=== PATIENT | female | born 1985 | race African-American/Black ===

== ENCOUNTER 2020-04-15 18:37 | Emergency (ER) | payer OTHER, SELFPAY ==
[2020-04-15 18:49] VITALS: BP 132/87; PULSE 92; RESP 18; TEMP 36.8; O2SAT 98
--- NOTE | 2020-04-15 19:24 | ED.ABDPAIN ---
HPI - Abdominal Pain General Chief Complaint: Abdominal Pain Stated Complaint: abd pain/lower back pain Time Seen by Provider: 04/15/20 19:08 Source: patient and RN notes reviewed Mode of arrival: ambulatory Limitations: no limitations History of Present Illness HPI narrative: Patient presents today complaining of lower abdominal pain and pressure x2 to 3 days with bilateral and midline low back pain that is sharp in nature. She currently rates her pain 7/10 and has tried no [id number] interventions prior to arrival. Denies dysuria, hematuria, frequency, nausea, vomiting, diarrhea, fever, vaginal discharge or odor. She is requesting STD testing. Denies any known STD exposure. MD elicited complaint: abdominal pain Related Data Allergies Allergy/AdvReac Type Severity Reaction Status Date / Time No Known Allergies Allergy Verified 12/19/18 17:04 Review of Systems Review of Systems: Narrative: CONSTITUTIONAL: Denies body aches, fever, chills, or sweats. EYES: Denies visual changes, redness, or discharge. ENT: Denies rhinorrhea, congestion, sore throat, or otalgia. CARDIOVASCULAR: Denies chest pain, palpitations, or edema. RESPIRATORY: Denies cough or dyspnea. GASTROINTESTINAL: Denies nausea, vomiting, or diarrhea. + Lower abdominal pain GENITOURINARY: Denies dysuria or hematuria. SKIN: Denies rash, itching, or wounds. MUSCULOSKELETAL: Denies joint pain, or myalgia. + Low back pain NEUROLOGIC: Denies headache, numbness, tingling, or weakness. PSYCH: Denies depression or anxiety. PMFSH Comments At time of signature, I have reviewed and agree with nursing past medical, surgical, social and family history unless otherwise noted. Please see nursing chart for further information. There is no relevant family history pertinent to the presenting complaint Exam Narrative: Exam Narrative: GENERAL: Well-appearing, well-nourished, and in no acute distress. HEAD: Normocephalic, atraumatic. EYES: EOMI. No redness or drainage. Conjunctivae normal. ENT: Mucous membranes pink and moist. NECK: Normal AROM. Supple. No lymphadenopathy. CHEST: No respiratory distress. Clear to auscultation. HEART: Regular rate and rhythm. No murmur appreciated. Normal peripheral pulses. ABDOMEN: Soft, nondistended, normal active bowel sounds. No rebound or guarding. -CVAT. + Mild suprapubic tenderness. exam deferred. MUSCULOSKELETAL: No bony tenderness. EXTREMITIES: Normal range of motion. No edema. SKIN: Warm, dry, no rash. Capillary refill normal. Normal skin turgor. NEURO: No focal deficits. Alert and oriented x3. Gait steady. PSYCH: Normal affect. No signs of depression or anxiety. Course Course Emergency Course: Discussed limitations of STD testing here. 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 Vital Signs Vital signs: Vital Signs Temperature 98.3 F 04/15/20 18:49 Pulse Rate 92 04/15/20 18:49 Respiratory Rate 18 04/15/20 18:49 Blood Pressure 132/87 04/15/20 18:49 Pulse Oximetry 98 04/15/20 18:49 Temperature 98.3 F 04/15/20 18:49 Pulse Rate 92 04/15/20 18:49 Respiratory Rate 18 04/15/20 18:49 Blood Pressure 132/87 04/15/20 18:49 Pulse Oximetry 98 04/15/20 18:49 Reviewed. Pt has been instructed to follow up with her PCP regarding her elevated blood pressure today. MDM - Abdominal Pain Differential Diagnosis Differential diagnosis: Likely abdominal pain, acute appendicitis, calculus of kidney and other (UTI, pyelonephritis, gonorrhea, chlamydia, trichomonas) Lab Data Attestation: I reviewed the patient's lab results. Labs: Lab Results 04/15/20 Range/Units 19:23 C.trachomatis RNA (TMA) Pending N.gonorrhoeae RNA (TMA) Pending T. vaginalis Amp RNA Pending Urine Glucose Negative Reference Range: Negative Urine Bilirubin 1+ Ref
[2020-04-15] MEDS: LIDOCAINE HCL 1% LOCAL INJ 20 ML VIAL IM (19:30)
[2020-04-15] MEDS: AZITHROMYCIN 250 MG TABLET 1000 MG PO (19:30)
[2020-04-15] MEDS: cefTRIAXone 250 MG VIAL IM (19:30)
== END 2020-04-15 19:54 | disposition home or self-care (01) ==
PROVIDERS: Emergency Provider Nurse Practitioner
DX: R10.30 Lower abdominal pain, unspecified (principal); Z20.2 Contact with and (suspected) exposure to infections with a predominantly sexual mode of transmission
CPT/HCPCS: 81003; 87086; 87088; 87491; 87591; 87661; 96372; 99214; A9270; G0463; J0696

== ENCOUNTER 2020-05-18 23:01 | Emergency (ER) | payer OTHER, SELFPAY ==
[2020-05-18 23:11] VITALS: BP 145/92; PULSE 78; RESP 16; TEMP 36.4; O2SAT 100
[2020-05-19 00:10] VITALS: BP 123/80; PULSE 71; RESP 18; O2SAT 99
--- NOTE | 2020-05-19 00:17 | ED.SKABFB ---
HPI - Skin/Abscess/Foreign Bdy General Chief complaint: Skin/Abscess/Foreign Body Stated complaint: boil Time Seen by Provider: 05/18/20 23:57 History of Present Illness HPI narrative: Painful swelling to the right side of her vagina for the past couple of days. She believes that she has an abscess. She has had them in other locations, but never on the vagina. No medical problems. Denies any other symptoms. Related Data Allergies Allergy/AdvReac Type Severity Reaction Status Date / Time No Known Allergies Allergy Verified 05/19/20 00:25 Review of Systems Review of Systems: All systems reviewed & are unremarkable except as noted in HPI and below Constitutional: Constitutional: Denies chills and Denies fever(s) Cardiovascular: Cardiovascular: Denies chest pain Respiratory: Respiratory: Denies dyspnea Gastrointestinal: Gastrointestinal: Denies abdominal pain and Denies nausea Genitourinary: Genitourinary: Denies hematuria, Denies nocturia, Denies dysuria and Denies vaginal discharge Neurologic: Denies numbness and Denies weakness [facility] Social History Social History Gender identity (if verbalized by the patient): Female Exam Const: General: no acute distress and alert Nutritional Appearance: obese Orientation/consciousness: patient oriented x3 HENMT: Head: normal to inspection Resp: Effort & Inspection: normal respiratory effort Auscultation: clear to auscultation bilaterally Cardio: Rate: regular rate Rhythm: regular rhythm GI: GI Palp: Yes Soft to palpation and No Tenderness to palpation present (GI) : Other: Small right labial abscess Neuro: General: patient oriented x3 and moves all extremities Extrem: General: normal to inspection Course Vital Signs Vital signs: Vital Signs Temperature 36.4 C 05/18/20 23:11 Pulse Rate 78 05/18/20 23:11 Respiratory Rate 16 05/18/20 23:11 Blood Pressure 145/92 H 05/18/20 23:11 Pulse Oximetry 100 05/18/20 23:11 Temperature 36.4 C 05/18/20 23:11 Pulse Rate 71 05/19/20 00:10 Respiratory Rate 18 05/19/20 00:10 Blood Pressure 123/80 05/19/20 00:10 Pulse Oximetry 99 05/19/20 00:10 Procedures Abscess I/D other: Side (if applicable): right (labia majora) Local Anesthetic: lidocaine 1% and with epi Amount of anesthesia used (mL): 2 Technique: incised with #11 blade Amount of fluid expressed (mL): 2 Irrigation: Yes Packing used?: none I&D Results: Pus MDM - Skin/Abscess/Foreign Bdy Differential Diagnosis Differential diagnosis: Likely abscess of skin or subcutaneous tissue and cellulitis Medical Records Attestation: I reviewed the patient's medical records. Discharge Plan Discharge Clinical Impression: Abscess of labia majora Patient Disposition: Home, Self-Care Condition: Stable Instructions: Antibiotic Form, Abscess (ED) Prescriptions: New clindamycin HCl 300 mg capsule 300 mg PO BID 7 Days Qty: 14 RF: 0 Follow-up/Referrals: Harpreet Gipson MD [Physician] - PHYSICIAN,DIE CAST OPERATOR [Primary Care Provider] -
--- NOTE | 2020-05-19 00:35 | PC.NURSE ---
Dr. Moffett at bedside for I & D right labial abscess. Pt tolerated procedure well.
[2020-05-19] MEDS: CLINDAMYCIN HCL 150 MG CAP 300 MG PO (00:50)
== END 2020-05-19 00:54 | disposition home or self-care (01) ==
PROVIDERS: Emergency Provider Emergency Medicine
DX: N76.4 Abscess of vulva (principal)
CPT/HCPCS: 56405; 99283; A9270

== ENCOUNTER 2020-05-21 09:42 | Emergency (ER) | payer OTHER, SELFPAY ==
--- NOTE | ~2020-05-21 | US_ITS ---
EXAMINATION: US pelvic complete w TV DATE: 05/21/2020 12:18 INDICATION: Pelvic pain Comparison:07/05/2010 TECHNIQUE: Multiple transabdominal and endovaginal sonographic images of the pelvis performed. FINDINGS: The uterus measures 9.6 x 5.3 x 7.3 cm. The endometrial complex measures 11 mm. The right ovary measures 2.8 x 2.1 x 1.8 cm and the left ovary measures 2.7 x 1 x 0.9 cm. There are small follicles in each ovary. There is no free fluid in the pelvis. There are no abnormal masses seen on either side. IMPRESSION: 1. Normal pelvic ultrasound. Reviewed, dictated and finalized at location A. WARE APPLICATIONS ARCHITECT
[2020-05-21 09:49] VITALS: BP 161/76; PULSE 90; RESP 18; TEMP 35.9; O2SAT 99
--- NOTE | 2020-05-21 10:22 | ED.FEMALEGU ---
HPI - Female Genitourinary General Chief complaint: CPO Stated complaint: pain to buttocks and vagina Time Seen by Provider: 05/21/20 10:03 Source: patient Mode of arrival: ambulatory Limitations: no limitations History of Present Illness HPI Narrative: This is a 34-year-old female that presents the emergency department for vaginal pain x4 days. Reports pain is worse with intercourse. It is sharp in nature. Reports she was recently seen here for a abscess on her labia that was lanced. She has picked up her antibiotics, but has not started them yet. Also reports pelvic pain that is dull in nature. Denies fever, nausea, vomiting, dysuria, rashes, abnormal discharge, or hematuria. Related Data Home Medications Medication Instructions Recorded Confirmed No Home Medications 05/21/20 05/21/20 Allergies Allergy/AdvReac Type Severity Reaction Status Date / Time No Known Allergies Allergy Verified 05/21/20 09:53 Review of Systems Review of Systems: Narrative: CONSTITUTIONAL: Denies fever GASTROINTESTINAL: Denies abdominal pain, nausea, vomiting GENITOURINARY: Denies dysuria or hematuria. SKIN: Denies rash All systems reviewed & are unremarkable except as noted in HPI and below PMFSH Past Medical History Medical History (Updated 05/21/20 @ 13:49 by Nabila Leblanc PA-C) No active medical problems Surgical History Surgical History (Updated 05/21/20 @ 11:33 by Nabila Leblanc PA-C) History of cholecystectomy History of tubal ligation Social History Social History Gender identity (if verbalized by the patient): Female Exam Narrative: Exam Narrative: GENERAL: Well-appearing, obese, and in no acute distress. HEAD: Normocephalic, atraumatic. EYES: EOMI. CHEST: Clear to auscultation. No respiratory distress. No wheezes rales or rhonchi HEART: Regular rate and rhythm. No murmur heard. Normal peripheral pulses. ABDOMEN: Soft, nontender, nondistended, normal active bowel sounds. EXTREMITIES: Normal range of motion. No edema. SKIN: Warm, dry, no rash. NEURO: No focal deficits. Alert and oriented x3. PSYCH: Normal mood and affect PELVIC: Normal external genitalia. Normal appearing cervix. No CMT. Small amount of white cervical discharge in the vaginal vault Course Vital Signs Vital signs: Vital Signs Temperature 96.7 F L 05/21/20 09:49 Pulse Rate 90 05/21/20 09:49 Respiratory Rate 18 05/21/20 09:49 Blood Pressure 161/76 H 05/21/20 09:49 Pulse Oximetry 99 05/21/20 09:49 Temperature 96.7 F L 05/21/20 09:49 Pulse Rate 90 05/21/20 09:49 Respiratory Rate 18 05/21/20 09:49 Blood Pressure 161/76 H 05/21/20 09:49 Pulse Oximetry 99 05/21/20 09:49 MDM - Female Genitourinary MDM Narrative Medical decision making narrative: Patient presents to the emergency department for vaginal/pelvic pain. She is afebrile and nontoxic-appearing. No abnormalities noted on external genitalia exam or pelvic exam. CBC and metabolic panel without concerning findings. UA without concern for infection. Bedside test is negative. Ultrasound of the pelvis is without acute findings. Trichomonas was negative. Chlamydia and gonorrhea were sent. Patient would like to follow-up with results and would not like to be treated presumptively at this time. Patient will be given gynecology for follow-up. She is stable and felt appropriate for the outpatient evaluation. She was given warnings to return to the ER Lab Data Attestation: I reviewed the patient's lab results. Result diagrams: 05/21/20 10:55 05/21/20 10:55 Labs: Lab Results 05/21/20 05/21/20 05/21/20 Range/Units 10:35 10:35 10:55 WBC 6.3 (4.5-10.0) K/mm3 RBC 4.58 (4.2-5.4) M/mm3 Hgb 14.6 (12.0-15.0) g/dL Hct 42.0 (37.0-47.0) % MCV 91.7 (80-100) fl MCH 31.9 (26-34) pg MCHC 34.8 (32-36) g/dl RDW 13.3 (11.5-
[2020-05-21 11:04] LABS: Basophils Percent Auto 0.5 % (0.2-1.2); Eosinophils Absolute Auto 0.1 K/mm3 (0-0.3); Eosinophils Percent Auto 2.2 % (0-4.4); Hemoglobin 14.6 g/dL (12.0-15.0); Immature Granulocyte Absolute 0.02 K/mm3 (0.00-0.031); Immature Granulocyte Percent A 0.3 % (0-0.5); Lymphocytes Absolute Auto 2.22 K/mm3 (0.9-3.2); Lymphocytes Percent Auto 35.5 % (18.3-44.2); Mean Corpuscular HGB Conc 34.8 g/dl (32-36); Mean Corpuscular Hemoglobin 31.9 pg (26-34); Mean Corpuscular Volume 91.7 fl (80-100); Mean Platelet Volume 9.6 fl (7.4-10.4); Monocytes Absolute Auto 0.5 K/mm3 (0.1-0.6); Monocytes Percent Auto 7.5 % (2.6-8.5); Neutrophils Absolute Auto 3.4 K/mm3 (1.3-6.7); Platelet Count Result 280 k/mm3 (150-375); Red Blood Count 4.58 M/mm3 (4.2-5.4); Red Cell Distribution Width 13.3 % (11.5-14.5); White Blood Count 6.3 K/mm3 (4.5-10.0)
[2020-05-21 11:26] LABS: Anion Gap 3 mmol/L (8-16); Blood Urea Nitrogen 9 mg/dL (7-17); Calcium 9.3 mg/dL (8.4-10.2); Carbon Dioxide 29 mmol/L (22-30); Chloride 108 mmol/L (98-107); Estimated CRCL calculation 77 ml/min; Estimated Glomerular Filt Rate > 60; Glucose 85 mg/dL (65-105); Sodium 140 mmol/L (137-145)
--- NOTE | 2020-05-21 11:55 | PC.NURSE ---
spoke with ultrasound. updated that patient has had a tubal ligation in the past. still need to know the date of her LMP for r/o ectopic even with tubal. patient states her LMP was 05/04/20. ice water given. patient aware that she can go for ultrasound but we will need a urine specimen when she returns to ED.
--- NOTE | 2020-05-21 12:00 | PC.NURSE ---
patient to ultrasound via wheelchair.
--- NOTE | 2020-05-21 12:24 | PC.NURSE ---
back from ultrasound. sitting on stretcher. drinking ice water.
[2020-05-21 13:17] LABS: Add Urine Microscopic? YES; Appearance Urine Clear (Clear); Bacteria Urine Trace /hpf; Bilirubin Urine Negative (Negative); Blood Urine Negative (Negative); Color Urine Yellow (Yellow); Glucose Urine UA Negative (Negative); Ketones Urine Negative (Negative); Leukocyte Esterase Ur Negative LEU/UL (Negative); Mucus Urine Few /lpf; Nitrate Urine Negative (Negative); Protein Urine Negative (Negative); RBC Urine 0-2 /hpf (0-2); Specific Grav Ur 1.014 (1.001-1.035); Squamous Epithelial Cell Urine Few /hpf (Few); WBC Urine 0-3 /hpf
== END 2020-05-21 14:00 | disposition home or self-care (01) ==
PROVIDERS: Physician Assistant; Emergency Provider Emergency Medicine
DX: R10.2 Pelvic and perineal pain (principal)
CPT/HCPCS: 36415; 76830; 76856; 80048; 81001; 81025; 85025; 87070; 87077; 87491; 87591; 87808; 99284

== ENCOUNTER 2020-08-25 10:29 | Emergency (ER) | payer OTHER, SELFPAY ==
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
[2020-08-25 10:39] VITALS: BP 153/101; PULSE 68; TEMP 36.7; O2SAT 98
[2020-08-25 10:49] VITALS: BP 158/101; PULSE 80; RESP 18; TEMP 36.7; O2SAT 99
[2020-08-25 10:50] VITALS: BP 153/100; PULSE 67; RESP 16; TEMP 37.1; O2SAT 98
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
[2020-08-25] MEDS: IBUPROFEN 600 MG TABLET PO (11:12)
== END 2020-08-25 12:48 | disposition home or self-care (01) ==
PROVIDERS: Emergency Provider Emergency Medicine
DX: S29.019A Strain of muscle and tendon of unspecified wall of thorax, initial encounter (principal); K02.9 Dental caries, unspecified; M47.814 Spondylosis without myelopathy or radiculopathy, thoracic region; V43.52XA Car driver injured in collision with other type car in traffic accident, initial encounter
CPT/HCPCS: 70486; 71046; 72128; 99284; A9270

== ENCOUNTER 2020-11-28 13:48 | Emergency (ER) | payer OTHER, SELFPAY ==
--- NOTE | ~2020-11-28 | CT_ITS ---
EXAMINATION: CT abdomen pelvis w con DATE: 11/28/2020 17:40 INDICATION: Abdominal pain TECHNIQUE: Computed tomography (CT) of the abdomen and pelvis was performed with 100 mL Omnipaque-350 intravenous contrast. Automated exposure control and iterative reconstruction technique were employe d. The dose-length product was 1310.59 mGy-cm. COMPARISON: None FINDINGS: Lung bases are clear. Heart size is normal. No pericardial or pleural effusion. Small sliding-type hi atal hernia. Cholecystectomy clips at the gallbladder fossa with dropped clip in the pelvis along the dome of the normal bladder. Small region of focal hepatic steatosis at the ligamentum teres. Spleen, pancreas, bilateral adrenal glands and left kidney are normal. 5 mm cyst at the upper pole of the ri ght kidney. Anteverted uterus and bilateral adnexa are unremarkable. Bowels including the appendix ar e normal. No free intraperitoneal gas or fluid. No pathologically enlarged abdominal or pelvic lympha denopathy. Small fat-containing umbilical hernia. Bones are unremarkable. IMPRESSION: 1. No acute intra-abdominal/pelvic process. 2. Small fat-containing umbilical hernia. 3. Small sliding-type hiatal hernia. Reviewed, dictated and finalized at location A.
[2020-11-28 13:52] VITALS: BP 137/77; PULSE 95; RESP 18; TEMP 37.4; O2SAT 96
[2020-11-28 14:04] LABS: Basophils Percent Auto 0.4 % (0.2-1.2); Eosinophils Absolute Auto 0.2 K/mm3 (0-0.3); Eosinophils Percent Auto 2.6 % (0-4.4); Hemoglobin 14.9 g/dL (12.0-15.0); Immature Granulocyte Absolute 0.02 K/mm3 (0.00-0.031); Immature Granulocyte Percent A 0.3 % (0-0.5); Lymphocytes Absolute Auto 3.28 K/mm3 (0.9-3.2); Lymphocytes Percent Auto 44.7 % (18.3-44.2); Mean Corpuscular HGB Conc 34.7 g/dl (32-36); Mean Corpuscular Hemoglobin 32.6 pg (26-34); Mean Corpuscular Volume 94.1 fl (80-100); Mean Platelet Volume 9.1 fl (7.4-10.4); Monocytes Absolute Auto 0.4 K/mm3 (0.1-0.6); Monocytes Percent Auto 5.9 % (2.6-8.5); Neutrophils Absolute Auto 3.4 K/mm3 (1.3-6.7); Neutrophils Percent Auto 46.1 % (45.5-73.1); Platelet Count Result 326 k/mm3 (150-375); Red Blood Count 4.57 M/mm3 (4.2-5.4); Red Cell Distribution Width 13.6 % (11.5-14.5); White Blood Count 7.3 K/mm3 (4.5-10.0)
[2020-11-28 14:20] LABS: Alanine Aminotransferase 15 U/L (4-35); Albumin Level 4.6 g/dL (3.5-5.1); Alkaline Phosphatase 64 U/L (38-126); Anion Gap 10 mmol/L (8-16); Aspartate Amino Transferase 20 U/L (14-36); Blood Urea Nitrogen 5 mg/dL (7-17); Calcium 9.2 mg/dL (8.4-10.2); Carbon Dioxide 23 mmol/L (22-30); Chloride 108 mmol/L (98-107); Estimated CRCL calculation 92 ml/min; Estimated Glomerular Filt Rate > 60; Glucose 106 mg/dL (65-110); Lipase 90 U/L (23-300); Potassium 3.8 mmol/L (3.4-5.0); Sodium 141 mmol/L (137-145)
[2020-11-28 14:40] LABS: Add Urine Microscopic? YES; Appearance Urine Clear (Clear); Bacteria Urine Trace /hpf; Bilirubin Urine 1+ (Negative); Blood Urine Negative (Negative); Color Urine Amber (Yellow); Glucose Urine UA Negative (Negative); Ketones Urine Negative (Negative); Leukocyte Esterase Ur Trace LEU/UL (Negative); Mucus Urine Heavy /lpf; Nitrate Urine Negative (Negative); Protein Urine 2+ mg/dL (Negative); RBC Urine 0-2 /hpf (0-2); Squamous Epithelial Cell Urine Many /hpf (Few); WBC Urine 0-3 /hpf
[2020-11-28 14:49] LABS: Specific Grav Ur 1.034 (1.001-1.035)
[2020-11-28 17:51] VITALS: BP 140/89; PULSE 70; RESP 18; O2SAT 100
[2020-11-28] MEDS: SODIUM CHLORIDE 0.9% IV 1,000 ML 999 ML IV CONT (17:53)
[2020-11-28] MEDS: FAMOTIDINE 20 MG/2 ML VIAL IV PUSH (17:53)
--- NOTE | 2020-11-28 17:55 | ED.ABDPAIN ---
HPI - Abdominal Pain General Chief Complaint: Abdominal Pain Stated Complaint: abd pain Time Seen by Provider: 11/28/20 17:02 Source: RN notes reviewed History of Present Illness HPI narrative: Patient presents to emergency department from home for abdominal pain. Patient states pain began approximate 24 hours ago pain is located in the upper abdomen and radiates around the left upper back described burning and cramping in nature states was associated nausea and vomiting but denies any current nausea also states associated diarrhea she denies any fevers or chills chest pain shortness of breath or any other symptoms states he took ibuprofen this morning for the symptoms with no relief Related Data Allergies Allergy/AdvReac Type Severity Reaction Status Date / Time No Known Allergies Allergy Verified 11/28/20 13:55 Review of Systems Review of Systems: Narrative: Gen.: Denies fevers or chills ENT: Denies congestion Respiratory: Denies shortness of breath or cough CV: Denies chest pain or palpitations GI: See HPI denies burning, urgency, frequency or hematuria Musculoskeletal: Denies back pain or muscle pain Neuro: Denies numbness, tingling, weakness or focal weakness Skin: Denies rash Except as documented, all other systems reviewed and negative [facility] Past Medical History Medical History No active medical problems Surgical History Surgical History (Updated 05/21/20 @ 11:33 by Nabila Leblanc PA-C) History of cholecystectomy History of tubal ligation Social History Social History (Updated 11/28/20 @ 17:55 by Osmani Curtis DO) Smoking status: Never smoker Gender identity (if verbalized by the patient): Female Exam Narrative: Exam Narrative: APPEARANCE: No acute distress, nontoxic, resting in bed HEENT: Normocephalic, atraumatic, OMM RESPIRATORY: No respiratory distress, clear to auscultation bilaterally with no rhonchi wheezing or rales CARDIOVASCULAR: RRR s murmur ABDOMINAL: Soft nondistended tender palpation epigastric and left upper quadrant no tenderness right upper quadrant right lower quadrant left lower quadrant no rebound or guarding MUSCULOSKELETAl: Moves all extremities. No clubbing, cyanosis or edema. NEURO: Awake and alert. Following commands, speech normal, no focal deficits SKIN:: Warm, dry. Normal Color PSYCHIATRIC: Normal affect/mood Course Course Emergency Course: Patient states that they are feeling much better at this time. States abdominal pain has resolved. Repeat abdominal exam shows the patient's abdomen to be soft and nontender. Discussed with patient results of workup and diagnosis. Discussed need for follow-up with primary care physician, reasons to return to the emergency department in proper use of medication. Patient understands and agrees to current treatment plan Vital Signs Vital signs: Vital Signs Temperature 99.4 F 11/28/20 13:52 Pulse Rate 95 11/28/20 13:52 Respiratory Rate 18 11/28/20 13:52 Blood Pressure 137/77 11/28/20 13:52 Pulse Oximetry 96 11/28/20 13:52 Temperature 99.4 F 11/28/20 13:52 Pulse Rate 70 11/28/20 17:51 Respiratory Rate 18 11/28/20 17:51 Blood Pressure 140/89 11/28/20 17:51 Pulse Oximetry 100 11/28/20 17:51 MDM - Abdominal Pain MDM Narrative Medical decision making narrative: Patient's abdomen is soft without significant pain or signs of surgical abdomen on serial exams. Lab and x-ray evaluations are reviewed and patient is felt to be a reasonable candidate for outpatient management. Patient was instructed as to limitations of x-ray and laboratory evaluation and encouraged to return to ED or primary physician for repeat exam in 12 hours if continued or worsening pain Lab Data Result diagrams: 11/28/20 13:57 11/28/20 13:57 Labs: Lab Results 11/28/20 11/28/20 11/28/20 Range/Units 13:57 13:57 13:57 WBC 7.3 (4.5-10.0)
--- NOTE | 2020-11-28 18:15 | ECG_ITS ---
Measurements Intervals [place] Rate: 62 P: 62 DE: 144 QRS: 28 QRSD: 91 T: 39 QT: 401 QTc: 409 Interpretive Statements SINUS RHYTHM CANNOT RULE OUT SEPTAL INFARCT, AGE INDETERMINATE ABNORMAL ECG Electronically Signed On 11-28-2020 22:15:52 CDT by Ozzie Montiel D.O.
[2020-11-28 18:50] LABS: Troponin I < 0.012 ng/mL (0.000-0.034)
[2020-11-28 20:31] VITALS: BP 132/74; PULSE 92; RESP 17; TEMP 36.9; O2SAT 98
== END 2020-11-29 05:05 | disposition home or self-care (01) ==
PROVIDERS: Emergency Medicine; Emergency Provider Emergency Medicine
DX: R10.12 Left upper quadrant pain (principal); K44.9 Diaphragmatic hernia without obstruction or gangrene; K42.9 Umbilical hernia without obstruction or gangrene; R94.31 Abnormal electrocardiogram [ECG] [EKG]
CPT/HCPCS: 36415; 74177; 80053; 81001; 81025; 83690; 84484; 85025; 93005; 96365; 96375; 99284; A9270; J0131; J7030; Q9967

== ENCOUNTER 2021-01-28 13:32 | Emergency (ER) | payer OTHER, SELFPAY ==
[2021-01-28 13:41] VITALS: BP 142/88; PULSE 78; RESP 16; TEMP 37.3; O2SAT 99
--- NOTE | 2021-01-28 14:08 | ED.GENADULT ---
HPI - General Adult General Chief complaint: Urogenital-Female Stated complaint: discharge Time Seen by Provider: 01/28/21 14:08 Source: patient Mode of arrival: ambulatory Limitations: no limitations History of Present Illness HPI narrative: 35-year-old female patient presents to the [facility] with complaints of green discharge with odor that started a couple of days ago. Patient states she had a LEEP procedure done on January 11 that she states that her doctor told her they got everything. Patient has no concerns for STDs at this time. Denies any pain with urination. Patient denies any fevers, body aches or chills. Related Data Allergies Allergy/AdvReac Type Severity Reaction Status Date / Time No Known Allergies Allergy Verified 01/28/21 13:47 Review of Systems Review of Systems: CONSTITUTIONAL: Denies fever, chills, or sweats. EYES: Denies visual changes, redness, or discharge. ENT: Denies rhinorrhea, congestion, sore throat, or otalgia. CARDIOVASCULAR: Denies chest pain, palpitations, or edema. RESPIRATORY: Denies cough or dyspnea. GASTROINTESTINAL: Denies abdominal pain, nausea, vomiting, or diarrhea. GENITOURINARY: Denies dysuria or hematuria. Positive vaginal discharge for the past 2 days with odor. SKIN: Denies rash or itching. MUSCULOSKELETAL: Denies back pain, joint pain, or myalgia. NEUROLOGIC: Denies headache, numbness, or weakness. PSYCHIATRIC: Denies anxiety or depression. PMFSH Past Medical History Medical History (Updated 01/28/21 @ 14:19 by DIANE Hill) No active medical problems Surgical History Surgical History (Updated 01/28/21 @ 14:14 by DIANE Hill) H/O LEEP History of cholecystectomy History of tubal ligation Social History Social History Smoking status: Never smoker Gender identity (if verbalized by the patient): Female Comments At the time of my signature I agree with nursing past medical history, surgical, social, and family history. There is no relevant family history pertinent to the presenting complaint. Exam Narrative: GENERAL: Well-appearing, well-nourished, and in no acute distress. HEAD: Normocephalic, atraumatic. EYES: PERRLA and EOMI. ENT: Nares clear, no rhinorrhea or epistaxis. Mucous membranes moist. NECK: Supple. No lymphadenopathy CHEST: Clear to auscultation. No respiratory distress. HEART: Regular rate and rhythm. No murmur heard. Normal peripheral pulses. ABDOMEN: Soft, nontender, nondistended, normal active bowel sounds. : Normal external female genitalia. OS is closed. No adnexal fullness or TTP. Patient does have some yellow to greenish milky discharge noted on exam. A swab was taken and since to the lab for culture. No CVA tenderness to percussion. EXTREMITIES: Normal range of motion. No edema. SKIN: Warm, dry, no rash. NEURO: No focal deficits. Alert and oriented x3. Course Vital Signs Vital signs: Vital Signs Temperature 37.3 C 01/28/21 13:41 Pulse Rate 78 01/28/21 13:41 Respiratory Rate 16 01/28/21 13:41 Blood Pressure 142/88 H 01/28/21 13:41 Pulse Oximetry 99 01/28/21 13:41 Temperature 37.3 C 01/28/21 13:41 Pulse Rate 78 01/28/21 13:41 Respiratory Rate 16 01/28/21 13:41 Blood Pressure 142/88 H 01/28/21 13:41 Pulse Oximetry 99 01/28/21 13:41 Vital signs reviewed The patient has been informed that they may have pre-hypertension or Hypertension based on a BP reading in the department. I recommend that the patient call the primary care provider listed on their discharge instructions or a physician of their choice this week to arrange follow up for further evaluation of possible pre-hypertension or Hypertension Medical Decision Making Differential Diagnosis Differential Diagnosis: Differential diagnosis: Gonorrhea, chlamydia, Trichomonas, bacterial vaginosis, herpes, HIV, yeast infection, urinary tract infection. Uncomplicated lower UT
== END 2021-01-28 14:23 | disposition home or self-care (01) ==
PROVIDERS: Emergency Provider Nurse Practitioner Family
DX: N76.0 Acute vaginitis (principal)
CPT/HCPCS: 87070; 99213; G0463

== ENCOUNTER 2021-04-06 19:28 | Emergency (ER) | payer OTHER, SELFPAY ==
--- NOTE | 2021-04-06 19:32 | ED.DENTAL ---
HPI - Dental/Oral General Chief complaint: Dental/Oral Stated complaint: Tooth Pain Time Seen by Provider: 04/06/21 19:32 Source: patient, RN notes reviewed and old records reviewed Mode of arrival: ambulatory Limitations: no limitations History of Present Illness HPI Narrative: 35-year-old female presents to the [facility] with complaints of dental pain to the left lower jaw. Swelling started this morning. No treatment prior to arrival. Has not seen a dentist in many years. Missing posterior molars on the left side. Poor dentition. Swelling noted. No redness or fluctuance at this time. Patient denies any chest pain or abdominal pain. No nausea vomiting or diarrhea. Denies fevers Teeth map: 1. decayed Related Data Allergies Allergy/AdvReac Type Severity Reaction Status Date / Time No Known Allergies Allergy Verified 04/06/21 19:50 Review of Systems Review of Systems: All systems reviewed & are unremarkable except as noted in HPI and below Constitutional: Constitutional: Reports no additional constitutional complaints, Denies chills and Denies fever(s) Eyes: Eyes: Reports no additional eye complaints ENT: Reports as per HPI, Reports dental pain (Left lower), Reports mouth pain (Left lower) and Denies nasal discharge Cardiovascular: Cardiovascular: Reports no additional cardiovascular complaints Respiratory: Respiratory: Reports no additional respiratory complaints Gastrointestinal: Gastrointestinal: Reports no additional gastrointestinal complaints Musculoskeletal: Musculoskeletal: Reports no additional musculoskeletal complaints Integumentary/Breasts: Skin/Breast: Reports system reviewed and no additional complaints, except as docu Neurologic: Reports system reviewed and no additional complaints, except as documented Psychiatric: Psychiatric: Reports no additional psychiatric complaints Allergic/Immunologic: Allergic/Immunologic: Reports no additional allergic/immunologic complaints [facility] Past Medical History Medical History (Updated 04/06/21 @ 19:54 by Marika Saldana) No active medical problems Surgical History Surgical History H/O LEEP History of cholecystectomy History of tubal ligation Social History Social History Smoking status: Never smoker Gender identity (if verbalized by the patient): Female Comments At the time of my signature, I reviewed and agree with the nursing past medical, surgical, social, and family history. There is no relevant family history pertinent to the patient complaint. Exam Const: General: healthy appearing, no acute distress and alert Nutritional Appearance: well nourished and obese Orientation/consciousness: patient oriented x3 Limitations: no limitations HENMT: Head: normal to inspection Ears: external ears normal, TM's normal bilaterally and EAC's normal Face images: 1. swelling noted without redness. Mouth: Yes moist mucous membranes Teeth and gingiva: caries, gingiva abnormal edematous, diffusely erythematous and tender and poor dentition Teeth image: 1. decayed Throat: posterior oropharynx normal Eyes: Pupils: Equal, round and reactive pupils present Neck: Neck: normal visual inspection, no lymphadenopathy and no meningeal signs Resp: Effort & Inspection: normal respiratory effort Cardio: Rate: regular rate Rhythm: regular rhythm Back/Spine/Pelvis: Back: no CVA tenderness Skin: General skin exam: normal color Rashes: no rashes Wounds: no wounds Neuro: General: patient oriented x3, moves all extremities, no meningeal signs and no focal motor deficits Speech: normal speech Gait exam (Neuro): Normal gait present Extrem: General: normal to inspection and no pedal edema Psych: Appearance: grossly normal and well kempt Mental Status: mental status grossly normal Affect: normal affect Attitude: cooperative Thought con
[2021-04-06 19:40] VITALS: BP 132/86; PULSE 91; RESP 20; TEMP 37; O2SAT 100
== END 2021-04-06 19:58 | disposition home or self-care (01) ==
PROVIDERS: Emergency Provider Nurse Practitioner
DX: K04.7 Periapical abscess without sinus (principal)
CPT/HCPCS: 99213; G0463

== ENCOUNTER 2021-09-13 07:14 | Emergency (ER) | payer OTHER, SELFPAY ==
--- NOTE | ~2021-09-13 | XR_ITS ---
EXAMINATION: XR chest 2V DATE: 09/13/2021 07:41 INDICATION: Left chest wall pain TECHNIQUE: PA and lateral views of the chest are obtained. COMPARISON: None available FINDINGS: The lungs are free of acute opacities. There is no pleural effusion or pneumothorax. The ca rdiomediastinal silhouette is normal. The visualized bones and soft tissues are unremarkable. Surgica l clips in the upper abdomen on the lateral view are likely from prior cholecystectomy. IMPRESSION: 1. No acute cardiopulmonary abnormality. Reviewed, dictated and finalized at location A.
[2021-09-13 07:18] VITALS: BP 139/96; PULSE 89; RESP 20; TEMP 37.1; O2SAT 100
--- NOTE | 2021-09-13 07:25 | ED.BACK ---
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 Pt says the pain is worse with any movement and with coughing. Pt denies SOB, fever or urinary symptoms. Pt deniesw numbness or weakness or problems with bladder or bowels. Pt is on menses. 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) Timing: constant Severity: severe Similar Symptoms Previously: No Quality: sharp Location: left upper back Radiation: abdomen Exacerbating factors: movement and coughing/sneezing Relieving factors: immobilization Associated symptoms: denies other symptoms Related Data Allergies Allergy/AdvReac Type Severity Reaction Status Date / Time No Known Allergies Allergy Verified 04/06/21 19:50 Review of Systems Review of Systems: All systems reviewed & are unremarkable except as noted in HPI and below PMFSH Past Medical History Medical History (Updated 09/13/21 @ 09:03 by Jason Damian III DO) No active medical problems Surgical History Surgical History H/O LEEP History of cholecystectomy History of tubal ligation Social History Social History Smoking status: Never smoker Gender identity (if verbalized by the patient): Female Exam Const: General: cooperative and no acute distress Orientation/consciousness: patient oriented x3 Limitations: no limitations Neck: Neck: normal visual inspection, full ROM and no meningeal signs Chest: Chest palpation & inspection: tenderness (tender over posterior 10-12th ribs on left and over intercostal muscles) Resp: Effort & Inspection: normal respiratory effort and able to speak in complete sentences Auscultation: clear to auscultation bilaterally Cardio: Rate: regular rate Rhythm: regular rhythm Peripheral pulses: Peripheral pulses 2+ throughout GI: Inspection: normal to inspection GI Palp: Yes abdominal tenderness (none) Auscultation: normal bowel sounds Back/Spine/Pelvis: Back: CVA tenderness (left but corresponds to chest wall as above) Thoracic/Lumbar Spine: thoracic and lumbar spine normal to inspection Skin: General skin exam: normal color and no rashes or lesions noted Neuro: General: patient oriented x3, no meningeal signs and no focal motor deficits Gait exam (Neuro): Normal gait present Motor exam (neuro): 5/5 motor strength present throughout Sensory Exam: normal sensation Extrem: General: normal to inspection, full ROM and no clubbing, cyanosis or edema Course Course Emergency Course: discussed with pt, blood in urine is likely due to menses, discussed CT to rule out stone, pt is ok treating as muscle and returning if worse without CT now Vital Signs Vital signs: Vital Signs Temperature 98.7 F 09/13/21 07:18 Pulse Rate 89 09/13/21 07:18 Respiratory Rate 20 09/13/21 07:18 Blood Pressure 139/96 H 09/13/21 07:18 Pulse Oximetry 100 09/13/21 07:18 Temperature 98.7 F 09/13/21 07:18 Pulse Rate 89 09/13/21 07:18 Respiratory Rate 20 09/13/21 07:18 Blood Pressure 139/96 H 09/13/21 07:18 Pulse Oximetry 100 09/13/21 07:18 MDM - Back Pain/Injury Differential Diagnosis Differential diagnosis: Likely renal colic, pyelonephritis and thoracic back pain Medical Records Attestation: I reviewed the patient's medical records. Lab Data Labs: Lab Results 09/13/21 Range/Units 08:33 Urine Color Chantal (Yellow) Urine Appearance Slightly cloudy (Clear) Urine pH 6.0 (5.0-9.0) Ur Specific [place] >= 1.030 (1.001-1.035) Urine Protein 2+ H (Negativ
--- NOTE | 2021-09-13 07:39 | PC.NURSE ---
pt attempted to void but with no results.
[2021-09-13] MEDS: CYCLOBENZAPRINE HCL 10 MG TABLET PO (07:40)
[2021-09-13] MEDS: KETOROLAC (*BKC) 60 MG/2 ML VIAL IM (07:41)
[2021-09-13 08:44] LABS: Appearance Urine Slightly Cloudy (Clear); Bilirubin Urine 1+ (Negative); Blood Urine 2+ (Negative); Color Urine Amber (Yellow); Glucose Urine UA Trace mg/dL (Negative); Ketones Urine Trace mg/dL (Negative); Leukocyte Esterase Ur Negative LEU/UL (Negative); Nitrate Urine Negative (Negative); Protein Urine 2+ mg/dL (Negative); Specific Grav Ur >= 1.030 (1.001-1.035)
[2021-09-13 08:48] LABS: Bacteria Urine Trace /hpf; Mucus Urine Heavy /lpf; Squamous Epithelial Cell Urine Many /hpf (Few)
[2021-09-13 08:50] LABS: Add Urine Microscopic? YES
== END 2021-09-13 09:14 | disposition home or self-care (01) ==
PROVIDERS: Emergency Provider Emergency Medicine
DX: S29.011A Strain of muscle and tendon of front wall of thorax, initial encounter (principal); X58.XXXA Exposure to other specified factors, initial encounter
CPT/HCPCS: 71046; 81001; 87086; 96372; 99283; A9270; J1885

== ENCOUNTER 2021-10-11 19:00 | Emergency (ER) | payer OTHER, SELFPAY ==
[2021-10-11 19:02] VITALS: BP 121/80; PULSE 75; RESP 16; TEMP 36.5; O2SAT 99
--- NOTE | 2021-10-11 19:07 | ED.DENTAL ---
HPI - Dental/Oral General Chief complaint: Dental/Oral Stated complaint: tooth pain Time Seen by Provider: 10/11/21 19:12 Source: patient Mode of arrival: ambulatory History of Present Illness HPI Narrative: 36-year-old female presented for complaint of left lower dental pain, onset today. Described as a throbbing and aching sensation Rating it an 8 out of 10. She has taken ibuprofen for pain. She states she believes her wisdom teeth are coming through. Endorses a history of broken teeth and dental caries. She states this does not feel like previous abscesses. She denies gum/facial swelling or drainage. MD Complaint: tooth pain Related Data Allergies Allergy/AdvReac Type Severity Reaction Status Date / Time No Known Allergies Allergy Verified 04/06/21 19:50 Review of Systems Review of Systems: CONSTITUTIONAL: Denies body aches, fever, chills ENT: Denies rhinorrhea, congestion, sore throat, or otalgia. Reports dental pain CARDIOVASCULAR: Denies chest pain, palpitations RESPIRATORY: Denies cough or dyspnea. SKIN: Denies rash, itching, or wounds. MUSCULOSKELETAL: Denies myalgia. NEUROLOGIC: Denies headache, numbness, tingling, or weakness. [facility] Past Medical History Medical History No active medical problems Surgical History Surgical History H/O LEEP History of cholecystectomy History of tubal ligation Social History Social History Smoking status: Never smoker Gender identity (if verbalized by the patient): Female Comments At time of signature, I have reviewed and agree with nursing past medical, surgical, social and family history unless otherwise noted. Please see nursing chart for further information. There is no relevant family history pertinent to the presenting complaint Exam Narrative: GENERAL: Appears in pain; no acute distress. HEAD: Normocephalic, atraumatic. No facial swelling bruising or asymmetry EYES: EOMI. No redness or drainage. Conjunctivae normal. ENT: Mucous membranes pink and moist. TMs normal bilaterally. Throat normal. Uvula midline. Appears to have tooth pushing through at #17, no gum swelling or abscess, no apparent caries or broken tooth. Absent dentition at # 18. Other broken and missing teeth noted. NECK: Normal AROM. Supple. No lymphadenopathy. SKIN: Warm, dry, no rash. Normal skin turgor. NEURO: No focal deficits. Alert and oriented x3. Gait steady. Course Course Emergency Course: Patient is aware of diagnosis, understands and agrees to treatment plan. Anticipatory guidance given. Patient agrees to follow-up as directed and is aware of reasons to seek care at the emergency department. Portions of this record may have been created with voice recognition software Level of Care: Express Care Visit MDM - Dental/Oral MDM Narrative Medical decision making narrative: Patients pain and complaint coupled with physical findings are consistent with dentalgia.There are no lesions that are compromising to the airway; Patient is non-toxic appearing. The floor of the mouth is soft with no signs of Francois's Angina; no induration below mandible, no neck pain. Patient is without trismus or drooling and able to swallow secretions. Patient is felt appropriate for discharge home with dental follow up. Differential Diagnosis Differential diagnosis: Likely gingival abscess, dental caries, toothache, dental abscess and fracture of tooth Discharge Plan Discharge Clinical Impression: Toothache Patient Disposition: Home, Self-Care Condition: Stable Instructions: Antibiotic Form, Toothache (ED) Additional Instructions: Alternate Tylenol 1000mg and ibuprofen 800mg every 8 hours as needed for pain May apply heat or ice to the face Gentle brushing and flossing. Rinse mouth with warm salt water at least 2
[2021-10-11 19:11] VITALS: BP 121/80; PULSE 75; RESP 16; TEMP 36.5; O2SAT 99
== END 2021-10-11 19:29 | disposition home or self-care (01) ==
PROVIDERS: Emergency Provider Nurse Practitioner Family
DX: K08.89 Other specified disorders of teeth and supporting structures (principal); J45.909 Unspecified asthma, uncomplicated
CPT/HCPCS: 99213; G0463

== ENCOUNTER 2022-05-03 16:57 | Emergency (ER) | payer OTHER, SELFPAY ==
[2022-05-03 17:08] VITALS: BP 141/89; PULSE 82; RESP 16; TEMP 36.5; O2SAT 99
[2022-05-03 17:10] VITALS: BP 141/89; PULSE 82; RESP 16; TEMP 36.5; O2SAT 99
--- NOTE | 2022-05-03 17:27 | ED.FEMALEGU ---
HPI - Female Genitourinary General Chief complaint: Urogenital-Female Stated complaint: Back Pain Time Seen by Provider: 05/03/22 17:20 Source: patient Mode of arrival: ambulatory Limitations: no limitations History of Present Illness HPI Narrative: Ms. Champion is a 36-year-old female patient presenting to the clinic today with complaints of left-sided flank pain x3 days. She reports the pain, goes in and is intermittent. She reports that the pain is currently sharp and rates it a 5/10 currently. She does have a history of kidney stones Related Data Home Medications Medication Instructions Recorded Confirmed No Home Medications 05/03/22 05/03/22 Allergies Allergy/AdvReac Type Severity Reaction Status Date / Time No Known Allergies Allergy Verified 05/03/22 17:10 Review of Systems Review of Systems: Pertinent positives per HPI. Patient denies any fever, chills, rash, headache, visual changes, dizziness, cough, runny nose, sore throat, shortness of breath, chest pain, palpitations, nausea, vomiting, diarrhea, constipation, PMFSH Past Medical History Medical History No active medical problems Surgical History Surgical History H/O LEEP History of cholecystectomy History of tubal ligation Social History Social History Smoking status: Never smoker Gender identity (if verbalized by the patient): Female Comments At the time of my signature, I reviewed and agree with the nursing past medical, surgical, social, and family history. There is no relevant family history pertinent to the patient complaint. Exam Narrative: General: Well-developed, well nourished, in no apparent distress. Head: Normocephalic, atraumatic. Cardio: Regular rate and rhythm, s1 and s2 normal, no murmur appreciated. Resp: Clear to auscultation bilaterally, no rhonchi, rales, wheezing or rubs. Abdomen: Soft, pliable, bowel sounds present in all quadrants, mild tender to palpation over the left upper quadrant, no organomegly, positive left CVAT tenderness. Course Course Emergency Course: Portions of this record may have been created with voice recognition software. Level of Care: Express Care Visit Vital Signs Vital signs: Vital Signs Temperature 36.5 C 05/03/22 17:08 Pulse Rate 82 05/03/22 17:08 Respiratory Rate 16 05/03/22 17:08 Blood Pressure 141/89 H 05/03/22 17:08 Pulse Oximetry 99 05/03/22 17:08 Oxygen Delivery Room Air 05/03/22 17:08 Temperature 36.5 C 05/03/22 17:10 Pulse Rate 82 05/03/22 17:10 Respiratory Rate 16 05/03/22 17:10 Blood Pressure 141/89 H 05/03/22 17:10 Pulse Oximetry 99 05/03/22 17:10 Oxygen Delivery Room Air 05/03/22 17:10 Vital signs reviewed Transfer Transfered to: [facility] Transportation: Other ( private car) Transfer rationale: left flank pain rule out ureterolithiasis Accepting physician: Susu De La Fuentephysician's assistant boiler operator Transfer comments: transfer via private car MDM - Female Genitourinary MDM Narrative Medical decision making narrative: At the time of visit patient is resting comfortably on the exam table. Urine shows 2+ blood, protein, and bili. Patient has history of kidney stones in the past. I suspect that she may have a ureteral stone. Recommend transfer to the emergency room for further evaluation. Susu- physician's assistant boiler operator at [facility] was contacted and report was given and she accepts patient for transfer. Differential Diagnosis Differential diagnosis: Likely urinary tract infection, cystitis and other ( Pyelonephritis, ureterolithiasis) Lab Data Labs: Urine Glucose Negative Reference Range: Negative Urine Bilirubin 1+ R
== END 2022-05-03 17:31 | disposition short-term general hospital (02) ==
PROVIDERS: Emergency Provider Nurse Practitioner Family
DX: R10.9 Unspecified abdominal pain (principal); Z87.442 Personal history of urinary calculi
CPT/HCPCS: 81003; 99212; G0463

== ENCOUNTER 2022-07-25 19:09 | Emergency (ER) | payer OTHER, SELFPAY ==
[2022-07-25 19:17] VITALS: BP 113/71; PULSE 72; RESP 18; TEMP 36.6; O2SAT 100
--- NOTE | 2022-07-25 19:18 | ED.NAVMDI ---
HPI - Nausea/Vomiting/Diarrhea General Chief complaint: Nausea/Vomiting/Diarrhea Stated complaint: n/v/d Time Seen by Provider: 07/25/22 19:20 Source: patient Mode of arrival: ambulatory Limitations: no limitations History of Present Illness HPI Narrative: Lori is a 36-year-old female patient presenting to the clinic today with complaints of nausea, vomiting, and diarrhea since Saturday. She reports that the nausea and vomiting stopped yesterday however she has had 2 episodes of diarrhea today and she had a cough work. She is requesting a work note. She denies any fever or chills but has some left lower and right lower quadrant abdominal discomfort. Is passing gas. She does feel bloated at times. Related Data Allergies Allergy/AdvReac Type Severity Reaction Status Date / Time No Known Allergies Allergy Verified 07/25/22 19:24 Review of Systems Review of Systems: Pertinent positives per HPI. Patient denies any fever, chills, rash, headache, visual changes, dizziness, cough, runny nose, sore throat, shortness of breath, chest pain, palpitations, constipation, or any urinary issues. [facility] Past Medical History Medical History No active medical problems Surgical History Surgical History H/O LEEP History of cholecystectomy History of tubal ligation Social History Social History Smoking status: Never smoker Gender identity (if verbalized by the patient): Female Comments At the time of my signature, I reviewed and agree with the nursing past medical, surgical, social, and family history. There is no relevant family history pertinent to the patient complaint. Exam Narrative: General: Well-developed, obese, in no apparent distress. Head: Normocephalic, atraumatic. Cardio: Regular rate and rhythm, s1 and s2 normal, no murmur appreciated. Resp: Clear to auscultation bilaterally, no rhonchi, rales, wheezing or rubs. Abdomen: Soft, pliable, bowel sounds present in all quadrants, mild tender to palpation over the lower abdomen, no organomegly, no CVAT tenderness. Course Course Emergency Course: Portions of this record may have been created with voice recognition software. Level of Care: Express Care Visit Vital Signs Vital signs: Vital Signs Temperature 36.6 C 07/25/22 19:17 Pulse Rate 72 07/25/22 19:17 Respiratory Rate 18 07/25/22 19:17 Blood Pressure 113/71 07/25/22 19:17 Pulse Oximetry 100 07/25/22 19:17 Oxygen Delivery Room Air 07/25/22 19:17 Temperature 36.6 C 07/25/22 19:17 Pulse Rate 72 07/25/22 19:17 Respiratory Rate 18 07/25/22 19:17 Blood Pressure 113/71 07/25/22 19:17 Pulse Oximetry 100 07/25/22 19:17 Oxygen Delivery Room Air 07/25/22 19:17 Vital signs reviewed MDM - Nausea/Vomiting/Diarrhea MDM Narrative Medical decision making narrative: At the time of visit patient is resting comfortably on the exam table. Patient is requesting a work note for today. Offered to complete x-ray to determine cause of diarrhea/nausea/vomiting and patient declined in the clinic today. I suspect patient has gastroenteritis. Her nausea and vomiting has resolved but she is still having a little bit of diarrhea. Supportive measures were discussed with the patient she voiced understanding discharge instructions agrees to treatment plan Differential Diagnosis Differential diagnosis: Likely traveler's diarrhea, food poisoning, gastroenteritis, dehydration and other (Adynamic ileus, small-bowel obstruction, constipation) Discharge Plan Discharge Clinical Impression: Gastroenteritis Patient Disposition: Home, Self-Care Condition: Stable Instructions: Antibiotic Form, Gastroenteritis (ED) Additional Instructions: Take Zofran as needed for nausea and vomiting May take Imodium as needed for diarrh
== END 2022-07-25 19:39 | disposition home or self-care (01) ==
PROVIDERS: Emergency Provider Nurse Practitioner Family
DX: K52.9 Noninfective gastroenteritis and colitis, unspecified (principal)
CPT/HCPCS: 99213; G0463

== ENCOUNTER 2023-03-01 15:11 | Emergency (ER) | payer OTHER, SELFPAY ==
[2023-03-01 15:22] VITALS: BP 122/72; PULSE 70; RESP 16; TEMP 37.2; O2SAT 100
--- NOTE | 2023-03-01 15:30 | ED.GENADULT ---
HPI - General Adult General Chief complaint: Back Pain/Injury Stated complaint: back/stomach pains Time Seen by Provider: 03/01/23 15:30 Source: patient Mode of arrival: ambulatory Limitations: no limitations History of Present Illness HPI narrative: 37 yo F presents with c/o vaginal itching and irritation for several days. Thinks she has yeast infection. Also would like STI testing. Has been with old partner who is back in town . Denies vaginal discharge/odor. No hx of BV. All systems reviewed and negative except as noted above. Related Data Allergies Allergy/AdvReac Type Severity Reaction Status Date / Time No Known Allergies Allergy Verified 03/01/23 15:26 Review of Systems Review of Systems: CONSTITUTIONAL: Denies fever, chills, or sweats. EYES: Denies visual changes, redness, or discharge. ENT: Denies rhinorrhea, congestion, sore throat, or otalgia. CARDIOVASCULAR: Denies chest pain, palpitations, or edema. RESPIRATORY: Denies cough or dyspnea. GASTROINTESTINAL: Denies abdominal pain, nausea, vomiting, or diarrhea. GENITOURINARY: Denies dysuria or hematuria. Reports vaginal itching and irritation. SKIN: Denies rash or itching. MUSCULOSKELETAL: Denies back pain, joint pain, or myalgia. NEUROLOGIC: Denies headache, numbness, or weakness. PSYCHIATRIC: Denies anxiety or depression. All other systems reviewed are negative, except as documented in HPI. PMFSH Past Medical History Medical History No active medical problems Surgical History Surgical History H/O LEEP History of cholecystectomy History of tubal ligation Social History Social History Smoking status: Never smoker Gender identity (if verbalized by the patient): Female Comments At time of signature, agree with nursing past medical, surgical, social and family history. There is no relevant family history pertinent to the presenting complaint. Exam Narrative: GENERAL: This is a well-nourished, well-developed patient, in no apparent distress. HEAD: normocephalic, atraumatic. EYES: PERRL. Sclera clear/white. Vision is grossly intact. EARS: External ears normal NOSE: External nose normal NECK: Neck supple, non-tender without lymphadenopathy, masses or thyromegaly. CARDIOVASCULAR: Regular rate and rhythm without murmurs, gallops, or rubs. RESPIRATORY: Clear to auscultation. Breath sounds equal bilaterally. No wheezes, rales, or rhonchi. SKIN: warm, Dry, intact with no suspicious lesions or rash, good texture and turgor. NEURO: awake, alert, and oriented to person, place and time. There were no obvious focal neurologic abnormalities. EXTREMITIES: No joint tenderness, effusion, or edema noted. GENITOURINARY: refused pelvic exam Course Course Level of Care: Express Care Visit Vital Signs Vital signs: Vital Signs Temperature 37.2 C 03/01/23 15:22 Pulse Rate 70 03/01/23 15:22 Respiratory Rate 16 03/01/23 15:22 Blood Pressure 122/72 03/01/23 15:22 Pulse Oximetry 100 03/01/23 15:22 Oxygen Delivery Room Air 03/01/23 15:22 Temperature 37.2 C 03/01/23 15:22 Pulse Rate 70 03/01/23 15:22 Respiratory Rate 16 03/01/23 15:22 Blood Pressure 122/72 03/01/23 15:22 Pulse Oximetry 100 03/01/23 15:22 Oxygen Delivery Room Air 03/01/23 15:22 Reviewed Medical Decision Making MDM Narrative Medical decision making narrative: pt wants treatment for yeast infection and STI today. She said she complained of ABD and back pain thinking the nurse would have offered her STI testing but when she gave urine sample she was being tested for that along with for UTI. Did not know that STI sample needed to be without cleaning wipe. Does not want to give another urine sample today. i just want treated for the STDs adn im not with that partner anym
[2023-03-01] MEDS: cefTRIAXone 1 GM, LIDOCAINE HCL 1% LOCAL INJ 2.1 ML IM (15:45)
[2023-03-01 19:46] LABS: Trichomonas Vag PCR NOT DETECTED (NOT DETECTE)
[2023-03-01 20:12] LABS: Chlamydia trachomatis NOT DETECTED (NOT DETECTE); Neisseria gonorrhoeae PCR NOT DETECTED (NOT DETECTE)
== END 2023-03-01 16:00 | disposition home or self-care (01) ==
PROVIDERS: Emergency Provider Nurse Practitioner Family
DX: B37.31 Acute candidiasis of vulva and vagina (principal); Z20.2 Contact with and (suspected) exposure to infections with a predominantly sexual mode of transmission
CPT/HCPCS: 81003; 81025; 87491; 87591; 87661; 96372; 99214; G0463; J0696

== ENCOUNTER 2024-05-23 21:32 | Emergency (ER) | payer OTHER, SELFPAY ==
[2024-05-23] VITALS (7 sets, daily range): BP systolic 137–139; BP diastolic 82–106; PULSE 71–92; RESP 14–20; TEMP 36.7; O2SAT 98–100
--- NOTE | ~2024-05-23 | XR_ITS ---
EXAMINATION: XR chest 2V Exam Date/Time: 05/23/2024 21:37 BIG DATA ENGINEER HISTORY: chest pain Comparison: 09/13/2021. RESULT: Lines, tubes, and devices: Cholecystectomy clips. Lungs and pleura: Clear. Cardiomediastinal silhouette: Stable. Other: No acute osseous or upper abdominal finding. IMPRESSION: No acute cardiopulmonary process. Reviewed, dictated and finalized at location K. DATA ENGINEER
--- NOTE | 2024-05-23 21:33 | ECG_ITS ---
Test Date: 2024-05-23 21:52:56 Measurements Intervals [place] Rate: 74 P: 61 IL: 140 QRS: 27 QRSD: 100 T: 39 QT: 369 QTc: 411 Interpretive Statements SINUS RHYTHM LOW QRS VOLTAGE IN PRECORDIAL LEADS [QRS DEFLECTION < 1.0 mV IN CHEST LEADS] No previous ECG available for comparison Electronically Signed On 05-24-2024 10:02:55 BALANCING MACHINE OPERATOR by Zack Schumacher M.D.
[2024-05-23] MEDS: ASPIRIN 81 MG CHEWABLE TABLET 324 MG PO (22:04)
[2024-05-23 22:12] LABS: Hematocrit 39.5 % (37.0-47.0); Hemoglobin 13.6 g/dL (12.0-15.0); Mean Corpuscular HGB Conc 34.4 g/dl (32-36); Mean Corpuscular Hemoglobin 33.3 pg (26-34); Mean Corpuscular Volume 96.6 fl (80-100); Mean Platelet Volume 11.2 fl (7.4-10.4); Platelet Count Result 240 k/mm3 (150-375); Red Blood Count 4.09 M/mm3 (4.2-5.4); Red Cell Distribution Width 13.8 % (11.5-14.5); White Blood Count 9.4 K/mm3 (4.5-10.0)
[2024-05-23 22:27] LABS: Partial Thromboplastin Time 22.2 Seconds (22.3-36.8)
[2024-05-23 22:28] LABS: Alanine Aminotransferase 16 U/L (6-35); Albumin Level 4.1 g/dL (3.5-5.1); Alkaline Phosphatase 34 U/L (38-126); Anion Gap 5 mmol/L (4-12); Aspartate Amino Transferase 23 U/L (14-36); Bilirubin,Total 0.7 mg/dL (0.2-1.3); Blood Urea Nitrogen 6 mg/dL (7-17); Calcium 9.2 mg/dL (8.4-10.2); Carbon Dioxide 25 mmol/L (22-30); Chloride 107 mmol/L (98-107); Estimated CRCL calculation 116 ml/min; Estimated Glomerular Filt Rate > 60; Glucose 99 mg/dL (65-110); Lipase 220 U/L (23-300); Potassium 3.8 mmol/L (3.4-5.0); Sodium 137 mmol/L (137-145)
[2024-05-23 22:31] LABS: Prothrombin Time 13.4 Seconds (11.1-14.7)
[2024-05-23 22:39] LABS: Troponin I < 0.012 ng/mL (0.000-0.034)
[2024-05-23 22:44] LABS: Atypical Lymphocytes Present; Eosinophils Absolute Manual 0.18 K/mm3 (0.02-0.50); Eosinophils Percent Manual 2 % (0-4); Lymphocytes Absolute Manual 4.23 K/mm3 (1.1-4.5); Monocytes Absolute Manual 0.28 K/mm3 (0.1-0.90); Monocytes Percent Manual 3 % (3-9); Neutrophils Percent Manual 50 % (46-73); Platelet Estimate Adequate (Adequate); Schistocytes None Seen; Smudge Cells PRESENT; Total Cells Counted 100
--- NOTE | 2024-05-23 23:08 | ED_ITS ---
HPI - Chest Pain General Chief Complaint: Chest Pain Stated Complaint: chest, back, abd pain x2d Time Seen by Provider: 05/23/24 22:17 History of Present Illness HPI narrative: Patient is a 38-year-old female who presents to the ER with chest pain that started 2 days ago. She reports the chest pain is intermittent and radiates across the top of her chest. Patient reports she has history of COPD and uses an inhaler at home but has not experienced much relief from its use. She endorses a nonproductive cough, headache, and wheezing. Patient denies any fevers, sputum production, recent sick contacts. She also endorses vaginal itchiness, rash, and sharp rectal pain. She is concerned she has urinary tract infection. Patient would also like to screened STDs. She denies any other medical history related to this ER visit. Related Data Allergies Allergy/AdvReac Type Severity Reaction Status Date / Time No Known Allergies Allergy Verified 05/23/24 21:33 Review of Systems 2 Review of Systems: All systems reviewed & are unremarkable except as noted in HPI and below PMFSH Past Medical History Medical History No active medical problems Surgical History Surgical History H/O LEEP History of tubal ligation History of cholecystectomy Social History Social History Smoking status: Never smoker Gender identity (if verbalized by the patient): Female Exam 2 Narrative: GENERAL: Well appearing, obese, non-toxic, in no acute distress. HEAD: Normocephalic, atraumatic. NECK: Supple. No adenopathy, no masses. RESPIRATORY: Airway patent, respirations nonlabored. Wheezing to auscultation bilaterally, no crackles. CARDIOVASCULAR: Regular rate and rhythm without murmurs, rubs, or gallops. Peripheral pulses 2+ and equal bilaterally. ABDOMINAL: Soft, nontender, nondistended, no hepatosplenomegaly. Normoactive BS. MUSCULOSKELETAL: Moves all extremities. Strength/ROM intact without gross deformities. SKIN: Warm, dry, normal color. NEURO: A&O X3. Speech clear. Cranial nerves II-XII grossly intact. Steady gait. No ataxic movements. PSYCHIATRIC: Appropriate mood and affect. Normal interaction. : No visible abnormal vaginal drainage upon time of examination. No noticeable rash in groin. Course Vital Signs Vital signs: Vital Signs Temperature 36.7 C 05/23/24 21:34 Pulse Rate 74 05/23/24 21:34 Respiratory Rate 14 05/23/24 21:34 Blood Pressure 137/106 H 05/23/24 21:34 Pulse Oximetry 100 05/23/24 21:34 Oxygen Delivery Room Air 05/23/24 21:34 Temperature 36.7 C 05/23/24 21:34 Pulse Rate 92 05/23/24 23:23 Respiratory Rate 20 05/23/24 23:23 Blood Pressure 139/85 05/23/24 21:56 Pulse Oximetry 98 05/23/24 21:56 Oxygen Delivery Room Air 05/23/24 21:53 MDM - Chest Pain MDM Narrative Medical decision making narrative: Patient is a 38-year-old female who presents to the ER with chest pain that started 2 days ago. She reports the chest pain is intermittent and radiates across the top of her chest. Patient reports she has history of COPD and uses an inhaler at home but has not experienced much relief from its use. She endorses a nonproductive cough, headache, and wheezing. Patient denies any fevers, sputum production, recent sick contacts. She also endorses vaginal itchiness, rash, and sharp rectal pain. She is concerned she has urinary tract infection. Patient would also like to screened STDs. She denies any other medical history related to this ER visit. Labs Ordered: CBC, CMP, coags, lipase, COVID/flu/RSV Imaging Ordered: Chest x-ray Results: Patient's chest x-ray indicates No acute cardiopulmonary process. Her CBC was unremarkable. Patient's coags were also unremarkable. Her CMP indicates a BUN 6 and creatinine of 0.69, which indicates mild dehydration. The patient's urinalysis was unremarkable (no concerns for UTI nor blood in urine). Her COVID/influenza/RSV swab were negative. Diagnosis: viral upper respiratory infection, yeast infection, lower back pain without injury Risks: HEART score: low risk HEART Score for Major Cardiac Events from [email or web address] on 05/24/2024 All calculations should be rechecked by clinician prior to use RESULT SUMMARY: 3 points Low Score (0-3 points) Risk of MACE of 0.9-1.7%. INPUTS: History ?> 1 = Moderately suspicious EKG ?> 0 = Normal Age ?> 0 = <45 Risk factors ?> 2 = >= risk factors or history of atherosclerotic disease Initial troponin ?> 0 = <=Normal limit Consults: None necessary Disposition/Plan: At time of re-examination pt reports she has lower bilateral back pain and is requesting a muscle relaxant upon discharge. Patient endorses significant relief of symptoms after DuoNeb and steroid administration. Results of x-ray and lab work shared with patient. A brief vaginal exam without speculum was performed in an attempt to identify vaginal rash patient was describing. There was no visible rash or vaginal discharge upon examination but patient reports the sensation is similar to previous yeast infection she has experienced. Patient will be sent home with a prescription for Diflucan. She is also requesting a prescription for muscle relaxant to treat her lower back pain. Patient will be given a prescription for steroids to help relieve her respiratory symptoms. She also reports she is out of her inhaler at home so this medication will also be re-prescribed. Patient should follow-up with her primary care provider as soon as possible. Her STD results will be back in 2-3 days. She should return to the ER with any worsening symptoms. Patient verbalizes understanding and is in agreement plan. Differential Diagnosis Differential diagnosis: Likely atypical chest pain, costochondritis and other (pneumonia, upper respiratory infection, yeast infection, lower back pain) Lab Data Attestation: I reviewed the patient's lab results. 05/23/24 22:03 05/23/24 22:03 Labs: Lab Results 05/23/24 05/23/24 05/23/24 Range/Units 22:03 23:12 23:24 WBC 9.4 (4.5-10.0) K/mm3 RBC 4.09 L (4.2-5.4) M/mm3 Hgb 13.6 (12.0-15.0) g/dL Hct 39.5 (37.0-47.0) % MCV 96.6 (80-100) fl MCH 33.3 (26-34) pg MCHC 34.4 (32-36) g/dl RDW 13.8 (11.5-14.5) % Plt Count 240 (150-375) k/mm3 MPV 11.2 H (7.4-10.4) fl Immature Gran % (Auto) Not Reportable Neut % (Auto) Not Reportable Lymph % (Auto) Not Reportable [place] % (Auto) Not Reportable Eos % (Auto) Not Reportable Baso % (Auto) Not Reportable Lymph # (Auto) Not Reportable [place] # (Auto) Not Reportable Eos # (Auto) Not Reportable Baso # (Auto) Not Reportable Abs Immat Gran (auto) Not Reportable Absolute Neuts (auto) Not Reportable Absolute Nucleated RBC Not Reportable Total Counted 100 Neutrophils % (Manual) 50 (46-73) % Lymphocytes % (Manual) 45.0 H (18-44) % Monocytes % (Manual) 3 (3-9) % Eosinophils % (Manual) 2 (0-4) % Nucleated RBC % Not Reportable Abs Lymphs (Manual) 4.23 (1.1-4.5) K/mm3 Abs Monocytes (Manual) 0.28 (0.1-0.90) K/mm3 Absolute Eos (Manual) 0.18 (0.02-0.50) K/mm3 Atypical Lymphocytes Present Smudge Cells Present Platelet Estimate Adequate (Adequate) % Immature Plt Fraction 5.0 (0.9-11.2) % Schistocytes None seen PT 13.4 (11.1-14.7) Seconds INR 1.0 APTT 22.2 L (22.3-36.8) Seconds Sodium 137 (137-145) mmol/L Potassium 3.8 (3.4-5.0) mmol/L Chloride 107 (98-107) mmol/L Carbon Dioxide 25 (22-30) mmol/L Anion Gap 5 (4-12) mmol/L BUN 6 L (7-17) mg/dL Creatinine 0.69 L (0.7-1.0) mg/dL Estim Creat Clear Calc 116 ml/min Estimated GFR > 60 (59 - ) Glucose 99 (65-110) mg/dL Calcium 9.2 (8.4-10.2) mg/dL Total Bilirubin 0.7 (0.2-1.3) mg/dL AST 23 (14-36) U/L ALT 16 (6-35) U/L Alkaline Phosphatase 34 L (38-126) U/L Troponin I < 0.012 (0.000-0.034) ng/mL Total Protein 7.0 (6.3-8.2) g/dL Albumin 4.1 (3.5-5.1) g/dL Lipase 220 (23-300) U/L Urine Color Yellow (Yellow) Urine Appearance Clear (Clear) Urine pH 6.0 (5.0-9.0) Ur Specific Mcintosh 1.027 (1.001-1.035) Urine Protein Negative (Negative) mg/dL Urine Glucose (UA) Negative (Negative) mg/dL Urine Ketones Trace H (Negative) mg/dL Ur Blood (Man) Negative (Negative) Urine Nitrate Negative (Negative) Urine Bilirubin Negative (Negative) Urine Urobilinogen 1.0 (<2.0) mg/dL Leukocyte Esterase Rfl Negative (Negative) PETE/UL Influenza A (RT-PCR) Negative (Negative) Influenza B (RT-PCR) Negative (Negative) RSV (RT-PCR) Negative (Negative) SARS-CoV-2 RNA (RT-PCR) Negative (Negative) Imaging Data Attestation: I personally reviewed and interpreted this imaging study as follows: Radiologist's impression: Impressions Chest X-Ray 05/23/24 22:10 IMPRESSION: No acute cardiopulmonary process. Discharge Plan Discharge Clinical Impression: Atypical chest pain, Costalchondritis, Upper respiratory infection, viral, Vaginal yeast infection, Lower back pain Patient Disposition: Home, Self-Care Condition: Stable Instructions: Antibiotic Form, Costochondritis (ED), Upper Respiratory Infection (ED), Yeast Infection (ED), Acute Low Back Pain (ED) Additional Instructions: Please return to the ER with an worsening symptoms. Follow-up with primary care provider in the next 2-3 days. Take all medications as prescribed. Patient Language: Icelandic Prescriptions: New methylprednisolone [Medrol (Ralph)] 4 mg tablets,dose pack See Rx Instructions PO .COMPLEX Qty: 21 0RF Rx Instructions: for 6 days albuterol sulfate 90 mcg/actuation aerosol powdr breath activated 2 inh inhalation Q4H PRN (Reason: shortness of breath or wheezing) Qty: 1 0RF benzonatate 100 mg capsule 100 mg PO TID 12 Days Qty: 36 0RF cyclobenzaprine 5 mg tablet 5 mg PO TID PRN (Reason: muscle spasm) Qty: 10 0RF fluconazole [Diflucan] 100 mg tablet 150 mg PO Q72H Qty: 2 0RF No Action fluconazole 150 mg tablet 150 mg PO Q72H Qty: 2 0RF doxycycline hyclate 100 mg capsule 100 mg PO BID 7 Days Qty: 14 0RF metronidazole 500 mg tablet 500 mg PO BID 7 Days Qty: 14 0RF Follow-up/Referrals: PHYSICIAN,CIVIL DIVISION DEPUTY SHERIFF [Primary Care Provider] - Time of Disposition: 01:25
[2024-05-23] MEDS: IPRATROPIUM 0.5 MG/ALBUTEROL SULFATE 2.5 MG AMPUL.NEB 3 ML INHALATION (23:21)
[2024-05-23 23:30] LABS: Add Urine Microscopic? NO; Appearance Urine Clear (Clear); Bilirubin Urine Negative (Negative); Blood Urine Negative (Negative); Color Urine Yellow (Yellow); Glucose Urine UA Negative (Negative); Ketones Urine Trace mg/dL (Negative); Leukocyte Esterase Ur Negative LEU/UL (Negative); Nitrate Urine Negative (Negative); Protein Urine Negative (Negative); Specific Grav Ur 1.027 (1.001-1.035)
[2024-05-23] MEDS: SODIUM CHLORIDE 0.9% IV 1,000 ML 999 ML IV CONT (23:33)
[2024-05-23] MEDS: predniSONE 20 MG TABLET 60 MG PO (23:33)
[2024-05-23 23:54] LABS: Influenza A QL RT-PCR Negative (Negative); Influenza B QL RT-PCR Negative (Negative); RSV RNA, RT-PCR Negative (Negative); SARS-CoV-2 RNA PCR Negative (Negative)
== END 2024-05-24 01:35 | disposition home or self-care (01) ==
PROVIDERS: Emergency Medicine; Emergency Provider Registered Nurse
DX: J06.9 Acute upper respiratory infection, unspecified (principal); M94.0 Chondrocostal junction syndrome [Tietze]; B37.31 Acute candidiasis of vulva and vagina; R07.89 Other chest pain; M54.50 Low back pain, unspecified; Z20.822 Contact with and (suspected) exposure to COVID-19; J44.9 Chronic obstructive pulmonary disease, unspecified; Z90.49 Acquired absence of other specified parts of digestive tract
CPT/HCPCS: 36415; 71046; 80053; 81003; 83690; 84484; 85025; 85055; 85610; 85730; 87637; 93005; 94640; 96360; 99284; A9270; J7030; J7512

== ENCOUNTER 2024-05-29 11:29 | Emergency (ER) | payer OTHER, SELFPAY ==
--- NOTE | ~2024-05-29 | XR_ITS ---
EXAMINATION: XR chest 2V DATE: 05/29/2024 12:29 INDICATION: Chest pain. TECHNIQUE: Frontal and lateral views of the chest were obtained. COMPARISON: Chest 2 views 05/23/2024 FINDINGS: There is no pneumonia, pleural effusion, or pneumothorax. The heart size is normal. There a re surgical clips in the abdomen. IMPRESSION: 1. No acute cardiopulmonary disease. Reviewed, dictated and finalized at location B. 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
--- NOTE | 2024-05-29 11:30 | ECG_ITS ---
Test Date: 2024-05-29 11:58:08 Measurements Intervals [place] Rate: 92 P: 59 [place]: 122 QRS: 23 QRSD: 108 T: 42 QT: 284 QTc: 352 Interpretive Statements SINUS RHYTHM LOW QRS VOLTAGE IN PRECORDIAL LEADS [QRS DEFLECTION < 1.0 mV IN CHEST LEADS] NONSPECIFIC T-WAVE ABNORMALITY Compared to ECG 05/23/2024 21:52:56 T-wave abnormality now present Electronically Signed On 05-29-2024 12:05:47 LAUNDRY HOUSEKEEPER by Padmini Yu
[2024-05-29 11:50] VITALS: BP 138/76; PULSE 94; RESP 16; TEMP 36.4; O2SAT 100
[2024-05-29 12:32] LABS: Basophils Percent Auto 0.3 % (0.2-1.2); Eosinophils Absolute Auto 0.1 K/mm3 (0-0.3); Hematocrit 42.8 % (37.0-47.0); Hemoglobin 14.6 g/dL (12.0-15.0); Immature Granulocyte Absolute 0.03 K/mm3 (0.00-0.031); Immature Granulocyte Percent A 0.3 % (0-0.5); Lymphocytes Absolute Auto 3.77 K/mm3 (0.9-3.2); Lymphocytes Percent Auto 39.2 % (18.3-44.2); Mean Corpuscular HGB Conc 34.1 g/dl (32-36); Mean Corpuscular Hemoglobin 32.7 pg (26-34); Mean Platelet Volume 10.2 fl (7.4-10.4); Monocytes Absolute Auto 0.6 K/mm3 (0.1-0.6); Monocytes Percent Auto 6.3 % (2.6-8.5); Neutrophils Absolute Auto 5.1 K/mm3 (1.3-6.7); Neutrophils Percent Auto 52.9 % (45.5-73.1); Platelet Count Result 317 k/mm3 (150-375); Red Blood Count 4.46 M/mm3 (4.2-5.4); Red Cell Distribution Width 13.3 % (11.5-14.5); White Blood Count 9.6 K/mm3 (4.5-10.0)
[2024-05-29 12:33] LABS: Prothrombin Time 13.7 Seconds (11.1-14.7)
[2024-05-29 12:34] LABS: Partial Thromboplastin Time 24.8 Seconds (22.3-36.8)
[2024-05-29 12:37] LABS: Troponin I < 0.012 ng/mL (0.000-0.034)
[2024-05-29 12:43] LABS: Alanine Aminotransferase 26 U/L (6-35); Albumin Level 4.1 g/dL (3.5-5.1); Alkaline Phosphatase 45 U/L (38-126); Anion Gap 9 mmol/L (4-12); Aspartate Amino Transferase 22 U/L (14-36); Blood Urea Nitrogen 9 mg/dL (7-17); Calcium 8.5 mg/dL (8.4-10.2); Carbon Dioxide 26 mmol/L (22-30); Chloride 105 mmol/L (98-107); Estimated CRCL calculation 101 ml/min; Estimated Glomerular Filt Rate > 60; Glucose 99 mg/dL (65-110); Lipase 136 U/L (23-300); Potassium 3.1 mmol/L (3.4-5.0); Sodium 140 mmol/L (137-145)
[2024-05-29 13:25] VITALS: PULSE 73
[2024-05-29 13:27] VITALS: O2SAT 100
[2024-05-29 13:28] VITALS: O2SAT 100
[2024-05-29 13:29] VITALS: BP 146/96; PULSE 69; RESP 15; TEMP 36.5; O2SAT 100
--- OUTSIDE RECORDS SUMMARY | 2024-05-29 13:30 | XMS_ITS | Clinical Summary ---
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
--- OUTSIDE RECORDS SUMMARY | 2024-05-29 13:30 | XMS_ITS | Referral Summary ---
Author Organization [facility] Address [address] [place] [address] Care Team Providers Care Nurse Auditor Name Role Phone Unavailable Primary Care Provider Unavailabl e Source Comments [facility],non-owned Affiliates and Associated Physician Practices is amultiple site organization consisting of ambulatory clinics and hospital sitesin [place], [place] and [place]. This disclosure is being madepursuant to the Care Everywhere program and may not contain all information available regarding this patient. Last updated 18.[facility] [employer] Active Problems Problem Noted Date Diagnosed Date Polyhydramnios, antepartum complication 08/19/19 16 Supervision of high risk in third trim ramírez 08/19/2015 Social History Tobacco Use Types Packs/Day Years Used Date Smoking Tobacco: Never Assessed Sex and Gender Information Value Date Recorded Sex Assigned at Not on file Gender Identity Not on file Sexual Orientation Not on file Plan of Treatment Not on file
--- OUTSIDE RECORDS SUMMARY | 2024-05-29 13:30 | XMS_ITS | Clinical Summary ---
Author Organization [facility] [employer] Address [address] [place] [address] Care Team Providers Care Threading Machine Operator Name Role Phone Unavailable Primary Care Provider Unavailabl e Source Comments [facility],non-owned Affiliates and Associated Physician Practices is amultiple site organization consisting of ambulatory clinics and hospital sitesin [place], [place], [place] and [place]. This disclosure is being madepursuant to the Care Everywhere program and may not contain all information available regarding this patient. Last updated 18.[facility] Active Problems Problem Noted Date Diagnosed Date Polyhydramnios, antepartum complication 08/19/19 16 Supervision of high risk in third trim ramírez 08/19/2015 Social History Tobacco Use Types Packs/Day Years Used Date Smoking Tobacco: Never Assessed Sex and Gender Information Value Date Recorded Sex Assigned at Not on file Gender Identity Not on file Sexual Orientation Not on file Plan of Treatment Health Maintenance Due Date Last Done Comments PAP SMEAR 1985 HIV SCREENING 2001 HEPATITIS C SCREENING 09/06/2004 DTAP/TDAP/TD VACCINES (1 - Tdap) 2005 HEPATITIS B VACCINE (1 of 3 - 19+ 3-dose series) 2005 COVID-19 VACCINE ( - 2023-2 5 season) 2024 INFLUENZA VACCINE (#1) 2024 DEPRESSION SCREENING 05/06/2024 ZOSTER VACCINE (1 of 2) 2036 HIB VACCINE Aged Out No longer eligi ble based on patient's age to complete this topic HPV VACCINE Aged Out No longer eligi ble based on patient's age to complete this topic MENINGOCOCCAL (Group B) VACCINE Aged Out No longer eligible based on patient's age to complete this topic MENINGOCOCCAL VACCINE Aged Out No germain olya eligible based on patient's age to complete this topic PNEUMOCOCCAL VACCINE Aged Out No long er eligible based on patient's age to complete this topic
--- OUTSIDE RECORDS SUMMARY | 2024-05-29 13:30 | XMS_ITS | Patient Health Summary ---
Author Organization [facility] Address [address] [place] [address] Care Team Providers Care Time Stamp Assembler Name Role Phone Unavailable Primary Care Provider Unavailabl e Note from [facility],non-owned Affiliates and Associated Physician Practices is amultiple site organization consisting of ambulatory clinics and hospital sitesin [place], [place], [place] and [place]. This disclosure is being madepursuant to the Care Everywhere program and may not contain all information available regarding this patient. Last updated 18.[facility] Active Problems Problem Noted Date Diagnosed Date Polyhydramnios, antepartum complication 08/19/19 16 Supervision of high risk in third trim ramírez 08/19/2015 Social History Tobacco Use Types Packs/Day Years Used Date Smoking Tobacco: Never Assessed Sex and Gender Information Value Date Recorded Sex Assigned at Not on file Gender Identity Not on file Sexual Orientation Not on file Procedures * SONOGRAM - COMPLETE(Performed 08/22/2015) Performed for Polyhydramnios, antepartum complication, third trimester, not applicable or unspecified fetus (HCC), Supervision of high risk in third trimester (HCC) Results * SONOGRAM - COMPLETE (08/22/2015 11:47 AM CDT) Anatomical Region Laterality Modality Other 08/22/2015 11:4 7 AM CDT Narrative 08/22/2015 12:33 PM CDT ? [facility] ?PHONE: ??FAX: ? Pat. Name: ?LORI BAILEY. No: ?[id number] Study Date: ?? 08/22/2015 ??11:47am , Age: ? 1985, 29 Pregnancies: ?? 6, Para 4, Ab 1 Height: ? 63 in Weight: ? 200 lb LMP: ?11/12/2014 GA by LMP: ?40w3d GA by US: ? 36w1d GA Selected: ??38w3d (From Known E) MARLON: ?09/02/2015 Referring MD: KAYA CHICAS MD Blunger Loader: ??Emily Dominguez RDMS BMI: ?35.42 Hist/Ind: ? Obesity ?Polyhydramnios on outside ultrasound MEASUREMENTS & AGE ? GROWTH EVALUATION Measurement ??GA ? Range ? Srce %for GA Ratios ----- ---- ------- BPD ??8.9 cm 35w6d (29d0r-52i2v) Hadl BPD 12% FL/BPD 0.77 (0.71 - 0.87) HC ??32.0 cm 36w1d (74n7q-11l1r) Hadl HC ??11% FL/AC ??0.20 (0.20 - 0.24) AC ??33.7 cm 37w4d (88z1r-86s7v) Hadl AC ??38% HC/AC ??0.95 (0.90 - 1.09) FL ?? 6.8 cm 35w0d (03t4j-37r6j) Hadl FL ??<05 CI ? 0.79 (0.70 - 0.86) HL ?? 5.8 cm 33w5d (64e4u-75w7i) Fredis HL ??<05 GA for sonogram 36w1d (50a5p-94a4n) ?? Weight Estimate: based on (BPD,HC,AC,FL) Avg ?Weight: 2991 gm (3595-9022) Hadlo ? : 6lbs, 9oz ? Normal: 3321 gm (2491- 4152) Hadlo ? Wt% ? 31% for 38w3d Heart Rate: 154 bpm Amniotic Fluid Index: 17.2cm (07.3-23.3) Q1: 6.9cm ??Q2: 2.8cm ??Q3: 3.7cm ??Q4: 3.9cm ?? Biophysical Profile: 12/11 Breathin ?? Tone: 2 ?? Movement: ??2 ?? AFV: ??2 CLINICAL SUMMARY Study Number: 1 A single fetus is identified in cephalic presentation. ??The measurements today are consistent with appropriate size for the MARLON provided. ??The MARLON selected is based on a prior ultrasound examination. ??The amniotic fluid volume is within normal limits. ?? The placenta is anterior fundal. ??No major malformations are seen within the limitations of ultrasound examination. ??The patient was advised that ultrasound does not allow detection of all structural or chromosomal abnormalities. TESTING The Biophysical profile score is 8/8. IMPRESSION: 1. Single, live, IUP at 38w3d 2. Appropriate size. ??The FL and HL measure small for gestational age. ?? 3. Normal amniotic fluid volume 4. Anterior fundal placenta 5. Anatomy survey is incomplete 6. ??BPP 8 out of 8. ?? 7. ??No major malformations seen. ?? RECOMMEND: ?? Follow up ultrasound as clinically indicated. ?? Recommend clinical correlation after for the small for gestational age FL and HL measurements. ??Consider follow up BPP approximately weekly as clinically indicated with suspected small long bones. ?? Thank you for allowing us the opportunity to care for your patient. Johnny Diaz MD <Electronic Signature> ??08/22/2015 12:32pm Kaya Chicas MD [facility] ORDERABLES
--- NOTE | 2024-05-29 13:31 | PC.NURSE ---
Per patient she does not have any medical hx or take any daily medications.
--- NOTE | 2024-05-29 13:53 | ED_ITS ---
HPI - Chest Pain General Chief Complaint: Chest Pain Stated Complaint: chest pains, knot on chest and neck Time Seen by Provider: 05/29/24 13:19 Source: patient Mode of arrival: ambulatory Limitations: no limitations History of Present Illness HPI narrative: 38-year-old otherwise healthy here with the complaints of neck pain upper chest pain, on and off fever, knots on her neck for last several days. She is a smoker has occasional cough which is nonproductive. Denies any shortness of breath. MD complaint: chest pain Timing of current episode: constant Pain location: other (And diet) Pain radiation: back and neck Severity: moderate Quality: aching Relieving factors: nothing Exacerbating factors: nothing Treatment prior to arrival: none Risk Factors Coronary artery disease risk factors: none Related Data Allergies Allergy/AdvReac Type Severity Reaction Status Date / Time No Known Allergies Allergy Verified 05/29/24 13:30 Review of Systems 2 Review of Systems: All systems reviewed & are unremarkable except as noted in HPI and below Constitutional: Constitutional: Reports no additional constitutional complaints Eyes: Eyes: Reports no additional eye complaints ENT: Reports system reviewed and no additional complaints, except as documented Cardiovascular: Cardiovascular: Reports no additional cardiovascular complaints Respiratory: Respiratory: Reports no additional respiratory complaints Gastrointestinal: Gastrointestinal: Reports no additional gastrointestinal complaints Musculoskeletal: Musculoskeletal: Reports no additional musculoskeletal complaints Neurologic: Reports system reviewed and no additional complaints, except as documented [facility] Past Medical History Medical History No active medical problems Surgical History Surgical History H/O LEEP History of tubal ligation History of cholecystectomy Social History Social History Smoking status: Never smoker Gender identity (if verbalized by the patient): Female Exam 2 Narrative: GENERAL: Well-appearing, obese, and in no acute distress. HEAD: Normocephalic, atraumatic. EYES: PERRLA and EOMI. ENT: Nares clear, no rhinorrhea or epistaxis. Mucous membranes moist. NECK: Supple. CHEST: Clear to auscultation. No respiratory distress. HEART: Regular rate and rhythm. No murmur heard. Normal peripheral pulses. ABDOMEN: Soft, nontender, nondistended, normal active bowel sounds. EXTREMITIES: Normal range of motion. No edema. SKIN: Warm, dry, no rash. NEURO: No focal deficits. Alert and oriented x3. PSYCH: Normal mood and affect. Course Course Emergency Course: Notified patient about her EKG, a today and lab work. The cause of her pain could be musculoskeletal. Advised her to take naproxen twice a day. Vital Signs Vital signs: Vital Signs Temperature 36.4 C 05/29/24 11:50 Pulse Rate 94 05/29/24 11:50 Respiratory Rate 16 05/29/24 11:50 Blood Pressure 138/76 05/29/24 11:50 Pulse Oximetry 100 05/29/24 11:50 Temperature 36.5 C 05/29/24 13:29 Pulse Rate 69 05/29/24 13:29 Respiratory Rate 15 05/29/24 13:29 Blood Pressure 146/96 H 05/29/24 13:29 Pulse Oximetry 100 05/29/24 13:29 Oxygen Delivery Room Air 05/29/24 13:28 MDM - Chest Pain Lab Data 05/29/24 12:03 05/29/24 12:03 Labs: Lab Results 05/29/24 Range/Units 12:03 WBC 9.6 (4.5-10.0) K/mm3 RBC 4.46 (4.2-5.4) M/mm3 Hgb 14.6 (12.0-15.0) g/dL Hct 42.8 (37.0-47.0) % MCV 96.0 (80-100) fl MCH 32.7 (26-34) pg MCHC 34.1 (32-36) g/dl RDW 13.3 (11.5-14.5) % Plt Count 317 (150-375) k/mm3 MPV 10.2 (7.4-10.4) fl Immature Gran % (Auto) 0.3 (0-0.5) % Neut % (Auto) 52.9 (45.5-73.1) % Lymph % (Auto) 39.2 (18.3-44.2) % [place] % (Auto) 6.3 (2.6-8.5) % Eos % (Auto) 1.0 (0-4.4) % Baso % (Auto) 0.3 (0.2-1.2) % Lymph # (Auto) 3.77 H (0.9-3.2) K/mm3 [place] # (Auto) 0.6 (0.1-0.6) K/mm3 Eos # (Auto) 0.1 (0-0.3) K/mm3 Baso # (Auto) 0.0 (0.0-0.1) K/mm3 Abs Immat Gran (auto) 0.03 (0.00-0.031) K/mm3 Absolute Neuts (auto) 5.1 (1.3-6.7) K/mm3 Absolute Nucleated RBC 0.000 (0.0-0.012) K/mm3 Nucleated RBC % 0.0 (0.0-0.2) % PT 13.7 (11.1-14.7) Seconds INR 1.0 APTT 24.8 (22.3-36.8) Seconds Sodium 140 (137-145) mmol/L Potassium 3.1 L (3.4-5.0) mmol/L Chloride 105 (98-107) mmol/L Carbon Dioxide 26 (22-30) mmol/L Anion Gap 9 (4-12) mmol/L BUN 9 (7-17) mg/dL Creatinine 0.78 (0.7-1.0) mg/dL Estim Creat Clear Calc 101 ml/min Estimated GFR > 60 (59 - ) Glucose 99 (65-110) mg/dL Calcium 8.5 (8.4-10.2) mg/dL Total Bilirubin 1.0 (0.2-1.3) mg/dL AST 22 (14-36) U/L ALT 26 (6-35) U/L Alkaline Phosphatase 45 (38-126) U/L Troponin I < 0.012 (0.000-0.034) ng/mL Total Protein 7.0 (6.3-8.2) g/dL Albumin 4.1 (3.5-5.1) g/dL Lipase 136 (23-300) U/L Imaging Data Radiologist's impression: ITS Impressions Chest X-Ray 05/29/24 12:33 IMPRESSION: 1. No acute cardiopulmonary disease. ECG Data EKG #1: ECG completion date: 05/29/24 ECG completion time: 11:58 EKG Interpretation: normal rate (92), sinus rhythm, non-specific ST changes, no ST changes and NL axis Discharge Plan Discharge Clinical Impression: Chest pain Qualifiers: Chest pain type: unspecified Qualified Code(s): R07.9 - Chest pain, unspecified Patient Disposition: Home, Self-Care Condition: Stable Instructions: Chest Pain (ED) Patient Language: Tunisian Prescriptions: New naproxen sodium [Anaprox DS] 550 mg tablet 550 mg PO Q12H PRN (Reason: pain) Qty: 14 0RF Follow-up/Referrals: UNKNOWN,DOCTOR [Primary Care Provider] - Addison Michaud MD [Physician] - Time of Disposition: 14:00
[2024-05-29] MEDS: NAPROXEN 500 MG TABLET PO (14:19)
== END 2024-05-29 14:21 | disposition home or self-care (01) ==
PROVIDERS: Registered Nurse; Emergency Provider Family Medicine
DX: R07.9 Chest pain, unspecified (principal); F17.200 Nicotine dependence, unspecified, uncomplicated; Z90.49 Acquired absence of other specified parts of digestive tract; R94.31 Abnormal electrocardiogram [ECG] [EKG]
CPT/HCPCS: 36415; 71046; 80053; 83690; 84484; 85025; 85610; 85730; 93005; 99284; A9270

== ENCOUNTER 2025-01-01 14:53 | Emergency (ER) | payer OTHER, SELFPAY ==
[2025-01-01 15:04] VITALS: BP 133/83; PULSE 92; RESP 14; TEMP 36.3; O2SAT 99
--- NOTE | 2025-01-01 15:16 | ED.SKABFB ---
HPI - Skin/Abscess/Foreign Bdy General Chief complaint: Skin/Abscess/Foreign Body Stated complaint: Rash Time Seen by Provider: 01/01/25 15:20 Source: patient and RN notes reviewed Mode of arrival: ambulatory Limitations: no limitations History of Present Illness HPI narrative: 39-year-old female presents concern for itchy rash in her groin. She reports to 3 week history of itchy rash. She has been using Neosporin. She denies pain, redness, warmth. She has a chronic folliculitis on her inner thighs. complaint: rash Related Data Allergies Allergy/AdvReac Type Severity Reaction Status Date / Time No Known Allergies Allergy Verified 05/29/24 13:30 Review of Systems Review of Systems: CONSTITUTIONAL: Denies malaise, chills, sweats, or fever. SKIN: Reports itchy flat rash in her bilateral groin All systems reviewed & are unremarkable except as noted in HPI and below PMFSH Past Medical History Medical History No active medical problems Surgical History Surgical History H/O LEEP History of tubal ligation History of cholecystectomy Social History Social History Smoking status: Never smoker Gender identity (if verbalized by the patient): Female Comments At time of signature, agree with nursing past medical, surgical, social and family history. There is no relevant family history pertinent to the presenting complaint Exam Narrative: GENERAL: Well-appearing, well-nourished, and in no acute distress. HEAD: Normocephalic, atraumatic. EYES: PERRLA, conjunctivae clear, and EOMI. ENT: Mucous membranes moist. Oropharynx without edema, erythema or lesions. NECK: Supple. No lymphadenopathy CHEST: Clear to auscultation. No respiratory distress. HEART: Regular rate and rhythm. SKIN: Warm, dry. Skin discoloration in flakiness noted to the groin. Chronic folliculitis with no inflammation noted to the inner thighs NEURO: Alert and oriented x3. PSYCH: Normal mood and affect Course Course Emergency Course: Patient is aware of diagnosis, understands and agrees to treatment plan. Anticipatory guidance given. Patient agrees to follow-up as directed and is aware of reasons to seek care at the emergency department. Portions of this record may have been created with voice recognition software Level of Care: Express Care Visit Vital Signs Vital signs: Vital Signs Temperature 97.4 F L 01/01/25 15:04 Pulse Rate 92 01/01/25 15:04 Respiratory Rate 14 01/01/25 15:04 Blood Pressure 133/83 01/01/25 15:04 Pulse Oximetry 99 01/01/25 15:04 Oxygen Delivery Room Air 01/01/25 15:04 Temperature 97.4 F L 01/01/25 15:04 Pulse Rate 92 01/01/25 15:04 Respiratory Rate 14 01/01/25 15:04 Blood Pressure 133/83 01/01/25 15:04 Pulse Oximetry 99 01/01/25 15:04 Oxygen Delivery Room Air 01/01/25 15:04 Reviewed. MDM - Skin/Abscess/Foreign Bdy MDM Narrative Medical decision making narrative: Does not appear at this time to be erythema multiforme, bullous, SJS, TEN; no evidence at this time to suggest RMSF, endocarditis or Lyme disease; patient looks well, nontoxic and is tolerating oral intake; no neurologic signs or symptoms; no headache, photophobia or neck pain; afebrile; appropriate for initial outpatient treatment; discussed the importance of follow-up, patient agrees; question, viral exanthema, contact dermatitis, allergic dermatitis, eczema, urticaria, folliculitis, yeast infection. No soft palate or uvula edema, no tongue, lip edema or other mucosal involvement, no respiratory compromise, no stridor, no wheezing, no wheezing, no history of syncope, no hypotension, no nausea, vomiting, or diarrhea. Instructed patient to go to nearest ER immediately for any worsening symptoms including but not limited to: fever, spreading rash, pain, sore throat, headache, dizziness, chest pain, trouble breathing, or any symptoms concerning to the patient. Critical Care Time Critical Care Time Critical Care Time: No Discharge Plan Discharge Clinical Impression: Skin yeast infection Patient Disposition: Home Condition: Stable Instructions: Skin Yeast Infection (ED) Additional Instructions: Use medication as directed, apply cream and then powder on top. Dry well after showering, keep area dry throughout the day as well as you can. Please follow-up with your primary care doctor if you have any new concerns. Patient Language: Pakistani Prescriptions: New nystatin 100,000 unit/gram cream 1 applic topical QID Qty: 30 2RF nystatin 100,000 unit/gram powder 1 applic topical BID Qty: 30 2RF Follow-up/Referrals: PHYSICIAN,W[employer] SUPERVISOR [Primary Care Provider, Internal Medicine] Time of Disposition: 15:30
== END 2025-01-01 15:35 | disposition home or self-care (01) ==
PROVIDERS: Emergency Provider Nurse Practitioner
DX: B37.2 Candidiasis of skin and nail (principal)
CPT/HCPCS: 99213; G0463